=== PATIENT | female | born 1965 | race Caucasian/White ===

== ENCOUNTER → 2018-05-12 | Outpatient (CLI) | payer BC | END | disposition home or self-care (01) | LOC: LABWHC1 13:09 | PROVIDERS: ATTEND Family Medicine | DX: R20.9 Unspecified disturbances of skin sensation (principal) | CPT/HCPCS: 36415; 82565; 84520 ==

== ENCOUNTER → 2018-05-16 | Outpatient (CLI) | payer BC ==
--- NOTE | 2018-05-16 09:04 | MR ---
EXAMINATION TYPE: MR brain wo/w con DATE OF EXAM: 05/16/2018 COMPARISON: NONE HISTORY: Rt sided facial/arm/leg weakness and tingling TECHNIQUE: Multiplanar, multisequence images of the brain and brainstem is performed without and with IV contras t, utilizing 7 mL intravenous Gadavist . FINDINGS: Diffusion weighted images demonstrate no evidence of a recent infarct or other diffusion ab normality. There is no worrisome extra-axial fluid collection. The ventricular system and cisternal spaces are normal in size and appearance. The brain volume is age appropriate. There are scattered foci of T2 hyperintensity seen throughout the superficial, deep, and periventricular white matter. Ap proximately 20-25 scattered small lesions are seen. Lesions are nonspecific in appearance and distrib ution. Some corresponding areas of low T1 signal are present without enhancing lesions identified. Midline structures demonstrate normal morphology. The craniocervical junction appears within normal limits. Post contrast images demonstrate no abnormal enhancement. The dural venous sinuses appear pa tent. The visualized sinuses are clear and the globes are intact. IMPRESSION: Mild to moderate nonspecific white matter changes, findings favor product of chronic smal l vessel ischemic change in patient of this age. Demyelinating disease is in differential especially given patient's symptoms. Other etiologies are not excluded. No suspicious enhancing lesions are note d.
== END ==
LOC: RADMRIMAIN 08:07
PROVIDERS: ATTEND Family Medicine
DX: R90.89 Other abnormal findings on diagnostic imaging of central nervous system (principal); G35 Multiple sclerosis
CPT/HCPCS: 70553; A9585

== ENCOUNTER → 2024-02-24 | Outpatient (CLI) | payer OTHER ==
--- NOTE | 2024-02-24 10:06 | CA ---
Transthoracic Echo Report Name: Tina Kaye Age: 59 Gender: F : 1965 Exam Date: 02/24/2024 08:51 Exam Location: [facility] Ht (in): 64 Wt (lb): 180 Ordering Physician: Toyin Encinas MD Attending/Referring Phys: Toyin Encinas MD [employer] Charlene Ocampo [facility] Procedure CPT: Indications: R55 SYNCOPE R00.0 ELEVATED HEART RATE UNSPEC Cardiac Hx: Technical Quality: Good Contrast 1: Total Dose (mL): Contrast 2: Total Dose (mL): MEASUREMENTS (Male / Female) Normal Values 2D ECHO LV Diastolic Diameter PLAX 4.3 cm 4.2 - 5.9 / 3.9 - 5.3 cm LV Systolic Diameter PLAX 3.2 cm IVS Diastolic Thickness 0.9 cm 0.6 - 1.0 / 0.6 - 0.9 cm LVPW Diastolic Thickness 0.8 cm 0.6 - 1.0 / 0.6 - 0.9 cm LV Relative Wall Thickness 0.4 LVOT Diameter 2.4 cm LV Diastolic Volume MOD BP 98.3 cm??? 67 - 155 / 56 - 104 cm??? LV Systolic Volume MOD BP 41.9 cm??? 22 - 58 / 19 - 49 cm??? LV Ejection Fraction MOD BP 57.3 % >= 55 % LV Cardiac Index MOD BP 1504.4 cm???/min???m??? LV Diastolic Volume MOD 4C 88.9 cm??? LV Systolic Volume MOD 4C 38.3 cm??? LV Ejection Fraction MOD 4C 56.9 % LV Cardiac Index MOD 4C 1348.7 cm???/min???m??? LV Diastolic Length 4C 7.4 cm LV Systolic Length 4C 6.3 cm LV Diastolic Volume MOD 2C 106.2 cm??? LV Systolic Volume MOD 2C 45.6 cm??? LV Ejection Fraction MOD 2C 57.1 % LV Cardiac Index MOD 2C 1617.1 cm???/min???m??? LV Diastolic Length 2C 7.6 cm LV Systolic Length 2C 6.3 cm LA Volume 36.5 cm??? 18 - 58 / 22 - 52 cm??? LA Volume Index 18.7 cm???/m??? 16 - 28 cm???/m??? Ascending Aorta Diameter 3.4 cm DOPPLER AV Peak Velocity 109.1 cm/s AV Peak Gradient 4.8 mmHg AV Mean Velocity 78.3 cm/s AV Mean Gradient 2.7 mmHg AV Velocity Time Integral 26.0 cm LVOT Peak Velocity 81.6 cm/s LVOT Peak Gradient 2.7 mmHg LVOT Velocity Time Integral 18.7 cm LVOT Stroke Volume 85.6 cm??? LVOT Stroke Volume Index 45.8 ml/m??? LVOT Cardiac Index 2285.1 cm???/min???m??? AV Area Cont Eq vti 3.3 cm??? AV Area Cont Eq pk 3.4 cm??? MV Area PHT 5.3 cm??? Mitral E Point Velocity 75.5 cm/s Mitral A Point Velocity 49.4 cm/s Mitral E to A Ratio 1.5 MV Deceleration Time 142.6 ms TR Peak Velocity 224.2 cm/s TR Peak Gradient 20.1 mmHg Right Ventricular Systolic Press 25.1 mmHg PV Peak Velocity 64.5 cm/s PV Peak Gradient 1.7 mmHg FINDINGS Left Ventricle Left ventricular ejection fraction is estimated at 55-60 %. Left ventricular cavity size normal. Left ventricular wall thickness normal. No obvious regional wall motion abnormalities. Right Ventricle Normal right ventricular size and function. Right ventricular systolic pressure within normal limits. Right Atrium Normal right atrial size. Left Atrium Normal left atrial size. Mitral Valve Structurally normal mitral valve. No evidence for mitral valve prolapse. No mitral stenosis. Trace mitral regurgitation. Aortic Valve Trileaflet aortic valve. No aortic stenosis. Trace aortic regurgitation. Tricuspid Valve Structurally normal tricuspid valve. No tricuspid stenosis. Mild tricuspid regurgitation. Pulmonic Valve Structurally normal pulmonic valve. No pulmonic stenosis. Trace pulmonic regurgitation. Pericardium No pericardial effusion. Aorta Normal size aortic root and proximal ascending aorta. CONCLUSIONS Normal LV size and Systolic Function. No significant abnormality on Doppler . No pericardial Effision. Previewed by: Dr. Duglas Palma MD (Electronically Signed) Final Date: 24 February 2024 10:05
== END | disposition home or self-care (01) ==
LOC: RADECHMAIN 08:24
PROVIDERS: ATTEND Family Medicine
DX: R55 Syncope and collapse (principal); R00.0 Tachycardia, unspecified
CPT/HCPCS: 93306

== ENCOUNTER → 2024-03-02 | Outpatient (CLI) | payer OTHER ==
--- NOTE | 2024-04-08 15:44 | P.CEMON ---
7 Day Event monitor note: Patient wore an event monitor for 7 days from 03/02/2024 through 03/08/2024. Findings: Patient's baseline heart rate was normal sinus rhythm. There were no signficant atrial fibrillation, atrial flutter, or ventricular tachycardia episodes. There were no significant pauses greater than 2 seconds. There was one patient activated event which corresponded with normal sinus rhythm Rare PVCs and PACs Conclusions: 7 day event monitor showing normal sinus rhythm, rare PACs and PVCs. Patient activated event corresponding with sinus rhythm.
--- NOTE | 2024-04-09 13:20 | EM ---
7 Day Event monitor note: Patient wore an event monitor for 7 days from 03/02/2024 through 03/08/2024. Findings: Patient's baseline heart rate was normal sinus rhythm. There were no significant atrial fibrillation, atrial flutter, or ventricular tachycardia episodes. There were no significant pauses greater than 2 seconds. There was one patient activated event which corresponded with normal sinus rhythm Rare PVCs and PACs Conclusions: 7 day event monitor showing normal sinus rhythm, rare PACs and PVCs. Patient activated event corresponding with sinus rhythm. [facility]
== END | disposition home or self-care (01) ==
LOC: RADECHMAIN 07:55
PROVIDERS: ATTEND Family Medicine
DX: R55 Syncope and collapse (principal); R00.0 Tachycardia, unspecified
CPT/HCPCS: 93270